=== PATIENT | female | born 1985 | race Caucasian/White ===

== ENCOUNTER 2018-06-01 16:59 | Emergency (ER) | payer OTHER ==
[~2018-06-01] VITALS: Ht 170.2 cm; Wt 90.7 kg
[2018-06-01] MEDS ORDERED: PRENATAL + DHA1 EAC1 (17:17)
== END 2018-06-01 21:04 | disposition home or self-care (01) ==
LOC: ER 16:59
DX: O20.0 Threatened abortion (principal); Z34.81 Encounter for supervision of other normal pregnancy, first trimester